=== PATIENT | female | born 1995 | race Caucasian/White ===

== ENCOUNTER 2024-06-01 23:14 | Emergency (ER) | payer MEDICAID ==
[~2024-06-01] VITALS: Ht 160 cm; Wt 77.0 kg
[2024-06-02 01:14] VITALS: BP 113/64; PULSE 66; RESP 18; TEMP 98.6
== END 2024-06-02 01:23 | disposition home or self-care (01) ==
LOC: ER 23:14
DX: B35.1 Tinea unguium (principal); Z98.890 Other specified postprocedural states
CPT/HCPCS: 99281